=== PATIENT | female | born 1960 | race Caucasian/White ===

== ENCOUNTER → 2021-03-13 15:48 | Outpatient (CLI) | payer OTHER, SELFPAY ==
[2021-03-13 16:17] LABS: COVID19 -Nasal RAPID Negative (Negative)
== END ==
PROVIDERS: Visit Provider Nurse Practitioner
DX: Z20.822 Contact with and (suspected) exposure to COVID-19 (principal)
CPT/HCPCS: 87635

== ENCOUNTER 2025-01-22 15:22 | Emergency (ER) | payer OTHER, SELFPAY ==
[2025-01-22 15:26] VITALS: BP 172/79; PULSE 56; RESP 17; TEMP 36.5; O2SAT 97; BMI 34.0
--- NOTE | 2025-01-22 15:41 | DI.CT.S_ITS ---
PROCEDURE: CT ANGIO HEAD AND NECK INDICATIONS: headache, dizziness TECHNIQUE: After the administration of intravenous contrast, 1 mm thick sections acquired from the aortic arch through the [place] of [place]. 3-dimensional rbynpkb-rhswzutcn-esclbcxgnd (MIP) and/or volume rendering reformats were acquired of the central intracranial vasculature and neck separately. For radiation dose reduction, the following was used: automated exposure control, adjustment of mA and/or kV according to patient size. COMPARISON: None. FINDINGS: Image quality: Diagnostic. Cerebral CT Angiogram: Internal carotid arteries: No acute findings. Intracranial ICA are patent with no significant stenosis. No occlusion. No aneurysm. Anterior cerebral arteries: Unremarkable. No significant stenosis. No occlusion. No aneurysm. Middle cerebral arteries: Unremarkable. No significant stenosis. No occlusion. No aneurysm. Posterior cerebral arteries: Unremarkable. No significant stenosis. No occlusion. No aneurysm. Basilar artery: Unremarkable. No significant stenosis. No occlusion. No aneurysm. Vertebral arteries: Unremarkable as visualized. Dural venous sinuses: Unremarkable given phase of enhancement. Other: Arterial phase appearance of the brain parenchyma is unremarkable. Neck CT Angiogram: Internal carotid arteries: Unremarkable. No significant stenosis. No dissection or occlusion. Common carotid arteries: Unremarkable. No significant stenosis. No dissection or occlusion. External carotid arteries: Unremarkable. No occlusion. Vertebral arteries: Unremarkable. No significant stenosis. No dissection or occlusion. Aortic Arch and Mediastinum: Partially visualized aortic arch unremarkable without evidence of aneurysm. Origins of the great vessels unremarkable. Other: Arterial phase soft tissues of the neck and chest are unremarkable. IMPRESSION: 1. No significant intracranial arterial abnormality is seen. 2. No significant abnormality is seen within the arteries of the neck. Any quantitative measurements of stenosis were performed using NASCET criteria. Dictated by: Chemo Sy M.D. on 01/22/2025 at 16:32 Approved by: Chemo Sy M.D. on 01/22/2025 at 16:41
--- NOTE | 2025-01-22 15:41 | DI.CT.S_ITS ---
PROCEDURE: CT HEAD/BRAIN WO CON INDICATIONS: headache, dizziness TECHNIQUE: Noncontrast 4.5 mm thick angled axial sections acquired from the foramen magnum to the vertex, with coronal and sagittal reformats. For radiation dose reduction, the following was used: automated exposure control, adjustment of mA and/or kV according to patient size. COMPARISON: None. FINDINGS: Image quality: Diagnostic. CSF spaces: Basal cisterns are patent. No extra-axial fluid collections. The ventricles are symmetric in size and shape. Brain: No intracranial bleeds or mass effect. There is cerebral volume loss, with resultant ventricular and sulcal prominence. There are periventricular and deep white matter chronic small vessel ischemic changes. There is intracranial internal carotid artery atherosclerosis. Skull and face: Calvarium and visualized facial bones appear intact, without suspicious lesions. Sinuses: Visualized sinuses and mastoids are clear. IMPRESSION: No acute intracranial pathology. Dictated by: Chemo Sy M.D. on 01/22/2025 at 16:31 Approved by: Chemo Sy M.D. on 01/22/2025 at 16:32
--- NOTE | 2025-01-22 15:41 | DI.RAD.S_ITS ---
PROCEDURE: XR CHEST 1V INDICATIONS: Possible stroke TECHNIQUE: One view of the chest was acquired. COMPARISON: None. FINDINGS: Surgical changes and devices: None. Lungs and pleura: Lungs are clear. No pleural effusions or pneumothorax. Mediastinum: Mediastinal contours appear normal. Heart size is normal. Bones and chest wall: No suspicious bony lesions. Overlying soft tissues appear unremarkable. IMPRESSION: No acute cardiopulmonary pathology. Dictated by: Chemo Sy M.D. on 01/22/2025 at 16:25 Approved by: Chemo Sy M.D. on 01/22/2025 at 16:25
[2025-01-22 16:00] LABS: Add Manual Diff / Slide Review NO; Hematocrit 40.1 % (36-46); Hemoglobin 13.9 g/dL (12.0-16.0); Lymphocytes Absolute Auto 1900 /uL (1100-4500); Mean Corpuscular HGB Conc 34.7 % (30-36); Mean Corpuscular Hemoglobin 30.6 PG (26-34); Mean Corpuscular Volume 88.0 fL (80-100); Platelet Count 263 X10^3/uL (150-400)
[2025-01-22 16:04] LABS: INR 1.0 (0.9-1.3); Prothrombin Time 11.4 SECONDS (9.4-12.5)
[2025-01-22 16:07] LABS: PTT Partial Thromboplastin Tim 36 SECONDS (25.1-36.5)
[2025-01-22 16:09] LABS: Alanine Aminotransferase 39 IU/L (<35); Albumin 4.3 g/dL (3.5-5.0); Albumin Globulin Ratio 1.5 (1.0-2.8); Alkaline Phosphatase 64 U/L (38-126); Blood Urea Nitrogen 28 mg/dL (7-17); Calcium 9.4 mg/dL (8.4-10.2); Carbon Dioxide 23 mmol/L (22-32); Chloride 105 mmol/L (98-107); Creatine Kinase 74 U/L (30-135); Estimated Glomerular Filt Rate 56 mL/min (>60); Globulin 2.8 g/dL (1.7-4.1); Glucose 97 mg/dL (70-99); HEMOLYSIS < 15 (0-50); Potassium 4.2 mmol/L (3.4-5.1); Sodium 135 mmol/L (137-145); Total Protein 7.1 g/dL (6.3-8.2)
[2025-01-22 16:19] LABS: Troponin I < 0.012 ng/mL (0.01-0.034)
== END 2025-01-22 19:32 | disposition left against medical advice (07) ==
PROVIDERS: Family Medicine; Emergency Provider Emergency Medicine
DX: M54.2 Cervicalgia (principal); R51.9 Headache, unspecified
CPT/HCPCS: 36415; 70450; 70496; 70498; 71045; 80053; 82550; 84484; 85025; 85610; 85730; 99283; Q9967